=== PATIENT | female | born 2000 | race African-American/Black ===

== ENCOUNTER → 2020-04-30 | Outpatient (CLI) | payer OTHER ==
--- NOTE | 2020-04-30 15:43 | REP ---
INDICATION: LOW LYING PLACENTA/ GROWTH COMPARISON: None. TECHNIQUE: Transabdominal obstetrical ultrasound with color Doppler evaluation. FINDINGS: Examination demonstrates a single live intrauterine in cephalic presentation. motion is identified by technologist. Placenta is noted anterior and grade 2 without evidence for placenta previa or abruption. Amniotic fluid volume is normal. Cervix measures 3.7 cm in length and appears closed. Placental tip is 2.8 cm from the closed internal os. Gestational age by current measurements 36 weeks 0 days with EDDI 05/28/2020. FHR equals 149 beats per minute. BPD: 8.6 cm 34 weeks 5 days HC: 32.4 cm 36 weeks 4 days AC: 31.3 cm 35 weeks 1 day FL: 7.1 cm 36 weeks 4 days HL: 6.4 cm 37 weeks 0 days HC/AC: 1.04 Estimated weight 2736 grams (63rdpercentile). MELISSA: 12.4 cm (7.9-24.9) IMPRESSION: Single live advanced gestation in cephalic presentation demonstrating appropriate estimated weight and growth. Anterior grade 2 placenta without evidence for placenta previa. <Electronically signed by Tyler Crockett > 04/30/20 [id number]
== END ==
LOC: M WHC 14:57
PROVIDERS: ATTEND Obstetrics & Gynecology
DX: Z34.83 Encounter for supervision of other normal pregnancy, third trimester (principal); Z3A.36 36 weeks gestation of pregnancy